=== PATIENT | female | born 1950 | race Hispanic/Latino ===

== ENCOUNTER 2019-07-11 21:11 | Observation (INO) | payer MEDICARE, OTHER ==
[~2019-07-11] VITALS: Ht 165.1 cm; Wt 74.4 kg
--- OUTSIDE RECORDS SUMMARY | 2019-07-11 21:15 | XMS REPORT ---
Author Author [facility] Address Unknown Phone Unavailable Care Team Providers Care Associate Data Scientist Name Role Phone NOEMI BERNSTEIN Unavailable Unavailable THEE SAMANO Unavailable Unavailable LINUS LYLES Unavailable Unavailable HANNAH DUENAS Unavailable Unavailable HOBSON, DONNIE Unavailable Unavailable Problems This patient has no known problems. Allergies, Adverse Reactions, Alerts This patient has no known allergies or adverse reactions. Medications This patient has no known medications. Results Test Description Test Time Test Comments Text Results Atomic Results Result Comments RAD, SPINE, LUMBAR, COMPLETE (MIN 4 VIEWS) 2019-02-09 17:31:00 Reason for exam:- >BACK PAINShould this be performed at the bedside?->No FINAL REPORT LUMBAR SPINE 4 VIEWS HISTORY: Low back pain COMPARISON: Sagittal reformatted images from a CT abdomen of 07/25/2018 FINDINGS: AP, lateral, and bilateral oblique views of the lumbar spine were obtained. No lumbar fracture is visualized. There is moderate disc space narrowing at L2-L3 associated with endplate osteophytes. There is mild/moderate disc space narrowing at L1-L2. No other disc space narrowing is evident. There is arthrosis of the L4-L5 and L5-S1 facet joints. No spondylolysis or spondylolisthesis are visualized. IMPRESSION: 1. No fracture or acute abnormalities are visualized in the lumbar spine. 2. Multilevel degenerative disease. Signed: Eloy Arnold MDReport Verified Date/Time: 02/09/2019 17:31:29 Reading Location: [facility] C0X Ortho Consult [facility] , ABDOMEN 2018-07-25 16:51:00 Oral Contrast FINAL REPORT ABDOMINAL AND PELVIS CT DATED 07/25/2018 CLINICAL INFORMATION: Abdominal pain, unspecifiedsuspected diverticulitis TECHNIQUE: Axial images of the abdomen and pelvis were obtained from diaphragm to the pubic symphysis without GI or intravenous contrast. This exam was performed according to our departmental dose-optimization program, which includes automated exposure control, adjustment of the mA and/or kV according to patient size and/or use of interactive reconstruction technique. COMMENT: Liver and spleen are normal in size without focal abnormality. Gallbladder is surgically absent. No biliary dilatation is noted. Pancreas and adrenals are unremarkable. Both kidneys are normal in size. No hydronephrosis, hydroureter, urolithiasis is seen. Diverticular disease is seen in the large bowel. There is inflammatory changes in the distal descending mesocolon consistent with diverticulitis. No pneumoperitoneum or peridiverticular abscess is present. The small bowel is normal in caliber. Appendix is not visualized. Uterus is surgically absent. Both ovaries are unremarkable. No mass, adenopathy or ascites is present. IMPRESSION: Distal descending diverticulitis. Signed: Noemi Colon Verified Date/Time: 07/25/2018 16:51:27 Reading Location: [address] Body Reading Room , BRAIN, WITHOUT CONTRAST 2018-01-20 17:09:00 Reason for exam:->dizzinessWhat is the patient's sedation requirement?->No Sedation FINAL REPORT CT head without contrast. Comparisons: April 19, 2017 Reason for exam: Dizzinessdizziness. Discussion: Multiple axial CT images of the head are provided without contrast evaluated in brain and bone windows. Imaging submitted to PACS 1705 hours. Dose modulation, iterative reconstruction, and/or weight based adjustment of the mA/kV was utilized to reduce the radiation dose to as low as reasonably achievable. There is no CT evidence of intracranial hemorrhage, mass-effect, hydrocephalus, shift, or extra-axial collections. The visualized dural sinus regions, orbital contents, paranasal sinuses, bones and surrounding soft tissues are unremarkable. Impressions: 1. No specific evidence of acute intracranial abnormality. Signed: Adolfo Ball Verified Date/Time: 01/20/2018 17:09:40 Reading Location: [facility] C013V Neuro Reading Room -GLUCOSE METER 2018-01-20 14:54:00 POC-GLUCOSE METER (BEAKER) (test hrtq=5227) 203 mg/dL 70-110 TESTED AT [facility]- [address] [facility] [address] BLOOD [id number] 10:00:00* Test Item Value Reference Range Comments CULTURE (BEAKER) (test uktm=5190) No growth in 5 days BLOOD [id number] 10:00:00* Test Item Value Reference Range Comments CULTURE (BEAKER) (test ribr=0770) No growth in 5 days BLOOD [id number] 10:00:00* Test Item Value Reference Range Comments CULTURE (BEAKER) (test ahfd=8302) No growth in 5 days POCT-GLUCOSE [id number] 08:47:00* Test Item Value Reference Range Comments POC-GLUCOSE METER (BEAKER) (test gine=9321) 92 mg/dL 70-[address] [facility] [address] [facility] [address] BASIC METABOLIC [id number] 05:56:00* Test Item Value Reference Range Comments SODIUM (BEAKER) (test mnst=426) 139 meq/L 136-145 POTASSIUM (BEAKER) (test vqan=900) 3.3 meq/L 3.5-5.1 CHLORIDE (BEAKER) (test tbgg=913) 107 meq/L 98-107 CO2 (BEAKER) (test ooyt=861) 24 meq/L 22-29 BLOOD UREA NITROGEN (BEAKER) (test fjjc=911) 15 mg/dL 7-21 CREATININE (BEAKER) (test zzap=521) 0.66 mg/dL 0.57-1.25 GLUCOSE RANDOM (BEAKER) (test ujag=647) 108 mg/dL 70-105 CALCIUM (BEAKER) (test hjrf=856) 8.3 mg/dL 8.4-10.2 EGFR (BEAKER) (test odxf=2036) 90 mL/min/1.73 sq m ESTIMATED GFR IS NOT ACCURATE CREATININE CLEARANCE IN PREDICTING GLOMERULAR FILTRATION RATE. ESTIMATED GFR IS NOT APPLICABLE FOR DIALYSIS PATIENTS. C-REACTIVE [id number] 05:56:00* Test Item Value Reference Range Comments C-REACTIVE PROTEIN (BEAKER) (test aktw=889) 0.20 mg/dL 0.00-0.50 CBC W/PLT COUNT & AUTO [id number] 05:11:00* Test Item Value Reference Range Comments WHITE BLOOD CELL COUNT (BEAKER) (test umls=487) 7.0 K/ L 3.5-10.5 RED BLOOD CELL COUNT (BEAKER) (test nhhs=288) 4.35 M/ L 3.93-5.22 HEMOGLOBIN (BEAKER) (test ffrd=935) 12.6 GM/DL 11.2-15.7 HEMATOCRIT (BEAKER) (test btmx=453) 37.9 % 34.1-44.9 MEAN CORPUSCULAR VOLUME (BEAKER) (test nbpt=586) 87.1 fL 79.4-94.8 MEAN CORPUSCULAR HEMOGLOBIN (BEAKER) (test zqxi=869) 29.0 pg 25.6-32.2 MEAN CORPUSCULAR HEMOGLOBIN CONC (BEAKER) (test vfwh=187) 33.2 GM/DL 32.2-35.5 RED CELL DISTRIBUTION WIDTH (BEAKER) (test ibjt=681) 13.1 % 11.7-14.4 PLATELET COUNT (BEAKER) (test mkgj=129) 310 K/CU MM 150-450 MEAN PLATELET VOLUME (BEAKER) (test kdzp=366) 10.1 fL 9.4-12.3 NUCLEATED RED BLOOD CELLS (BEAKER) (test qgex=088) 0 /100 WBC 0-0 IMMATURE GRANULOCYTES-RELATIVE PERCENT (BEAKER) (test syui=8494) 0 % 0-1 POCT-GLUCOSE [id number] 21:13:00* Test Item Value Reference Range Comments POC-GLUCOSE METER (BEAKER) (test prpo=0311) 208 mg/dL 70-110 TESTED AT [address] [address] POCT-GLUCOSE [id number] 17:45:00* Test Item Value Reference Range Comments POC-GLUCOSE METER (BEAKER) (test ncgf=8937) 109 mg/dL 70-110 TESTED AT [address] [address] POCT-GLUCOSE [id number] 12:15:00* Test Item Value Reference Range Comments POC-GLUCOSE METER (BEAKER) (test cghy=4127) 142 mg/dL 70-110 TESTED AT [address] [address] URINE [id number] 09:20:00* Test Item Value Reference Range Comments CULTURE (BEAKER) (test phie=7327) Amikacin (test code=1) Ampicillin + Sulbactam (test code=6) Aztreonam (test code=32) Cefepime (test code=51) Cefoxitin (test code=68) Ceftazidime (test code=27) Ceftriaxone (test code=52) Ertapenem (test code=38) Gentamicin (test code=18) Levofloxacin (test code=22) Meropenem (test code=34) Nitrofurantoin (test code=23) Piperacillin + Tazobactam (test code=29) Tetracycline (test code=2) Tobramycin (test code=25) Trimethoprim + Sulfamethoxazole (test code=47) CULTURE (BEAKER) (test pkpo=9326) 30-39,000 col/mL Escherichia coli POCT-GLUCOSE [id number] 08:08:00* Test Item Value Reference Range Comments POC-GLUCOSE METER (BEAKER) (test opwp=2457) 102 mg/dL 70-[address] [facility] [address] [facility] [address] CBC W/PLT COUNT & AUTO [id number] 06:46:00* Test Item Value Reference Range Comments WHITE BLOOD CELL COUNT (BEAKER) (test sfco=511) 5.1 K/ L 3.5-10.5 RED BLOOD CELL COUNT (BEAKER) (test vlmm=250) 4.23 M/ L 3.93-5.22 HEMOGLOBIN (BEAKER) (test ccgg=991) 12.2 GM/DL 11.2-15.7 HEMATOCRIT (BEAKER) (test slxv=177) 37.0 % 34.1-44.9 MEAN CORPUSCULAR VOLUME (BEAKER) (test ncpp=899) 87.5 fL 79.4-94.8 MEAN CORPUSCULAR HEMOGLOBIN (BEAKER) (test becx=623) 28.8 pg 25.6-32.2 MEAN CORPUSCULAR HEMOGLOBIN CONC (BEAKER) (test zoqs=799) 33.0 GM/DL 32.2-35.5 RED CELL DISTRIBUTION WIDTH (BEAKER) (test adfq=074) 13.1 % 11.7-14.4 PLATELET COUNT (BEAKER) (test nyaa=508) 287 K/CU MM 150-450 MEAN PLATELET VOLUME (BEAKER) (test wvci=346) 10.3 fL 9.4-12.3 NUCLEATED RED BLOOD CELLS (BEAKER) (test jyou=861) 0 /100 WBC 0-0 NEUTROPHILS RELATIVE PERCENT (BEAKER) (test mswq=315) 44 % LYMPHOCYTES RELATIVE PERCENT (BEAKER) (test lscw=454) 46 % MONOCYTES RELATIVE PERCENT (BEAKER) (test wczo=682) 9 % EOSINOPHILS RELATIVE PERCENT (BEAKER) (test zxxa=949) 0 % BASOPHILS RELATIVE PERCENT (BEAKER) (test dsbk=750) 0 % NEUTROPHILS ABSOLUTE COUNT (BEAKER) (test mayg=510) 2.23 K/ L 1.56-6.13 LYMPHOCYTES ABSOLUTE COUNT (BEAKER) (test cmks=526) 2.35 K/ L 1.18-3.74 MONOCYTES ABSOLUTE COUNT (BEAKER) (test qvxm=634) 0.48 K/ L 0.24-0.36 EOSINOPHILS ABSOLUTE COUNT (BEAKER) (test kjzc=164) 0.00 K/ L 0.04-0.36 BASOPHILS ABSOLUTE COUNT (BEAKER) (test uhlq=400) 0.01 K/ L 0.01-0.08 IMMATURE GRANULOCYTES-RELATIVE PERCENT (BEAKER) (test mtzd=4049) 0 % 0-1 BASIC METABOLIC [id number] 06:06:00* Test Item Value Reference Range Comments SODIUM (BEAKER) (test rtwu=220) 140 meq/L 136-145 POTASSIUM (BEAKER) (test vtne=549) 3.4 meq/L 3.5-5.1 CHLORIDE (BEAKER) (test quir=723) 109 meq/L 98-107 CO2 (BEAKER) (test glax=757) 24 meq/L 22-29 BLOOD UREA NITROGEN (BEAKER) (test swok=585) 17 mg/dL 7-21 CREATININE (BEAKER) (test dbnq=178) 0.68 mg/dL 0.57-1.25 GLUCOSE RANDOM (BEAKER) (test ratb=376) 110 mg/dL 70-105 CALCIUM (BEAKER) (test gaad=328) 8.6 mg/dL 8.4-10.2 EGFR (BEAKER) (test cbkh=9287) 87 mL/min/1.73 sq m ESTIMATED GFR IS NOT ACCURATE CREATININE CLEARANCE IN PREDICTING GLOMERULAR FILTRATION RATE. ESTIMATED GFR IS NOT APPLICABLE FOR DIALYSIS PATIENTS. CREATINE KINASE (CK)2017-04-22 06:06:00* Test Item Value Reference Range Comments CREATINE KINASE TOTAL (BEAKER) (test yvha=350) 26 U/L 29-200 C-REACTIVE [id number] 06:06:00* Test Item Value Reference Range Comments C-REACTIVE PROTEIN (BEAKER) (test hlog=583) 0.27 mg/dL 0.00-0.50 POCT-GLUCOSE [id number] 20:55:00* Test Item Value Reference Range Comments POC-GLUCOSE METER (BEAKER) (test kwpf=5995) 202 mg/dL 70-110 TESTED AT [address] [address] POCT-GLUCOSE [id number] 18:51:00* Test Item Value Reference Range Comments POC-GLUCOSE METER (BEAKER) (test oozf=9835) 238 mg/dL 70-110 TESTED AT [address] [address] POCT-GLUCOSE [id number] 13:27:00* Test Item Value Reference Range Comments POC-GLUCOSE METER (BEAKER) (test ymqx=3860) 215 mg/dL 70-110 TESTED AT [address] [address] SEDIMENTATION [id number] 11:17:00* Test Item Value Reference Range Comments SEDIMENTATION RATE, ERYTHROCYTE (BEAKER) (test tobk=765) 31 mm/HR 0-40 URINE [id number] 10:16:00* Test Item Value Reference Range Comments CULTURE (BEAKER) (test mppa=2135) See comment <10,000 col/mL Gram Negative RodPOCT-GLUCOSE [id number] 08:30:00* Test Item Value Reference Range Comments POC-GLUCOSE METER (BEAKER) (test txtv=0085) 111 mg/dL 70-110 TESTED AT [address] [address] CBC W/PLT COUNT & AUTO [id number] 07:13:00* Test Item Value Reference Range Comments WHITE BLOOD CELL COUNT (BEAKER) (test jfsf=065) 4.0 K/ L 3.5-10.5 RED BLOOD CELL COUNT (BEAKER) (test ppxz=238) 4.22 M/ L 3.93-5.22 HEMOGLOBIN (BEAKER) (test gyjj=059) 12.2 GM/DL 11.2-15.7 HEMATOCRIT (BEAKER) (test zkht=947) 36.9 % 34.1-44.9 MEAN CORPUSCULAR VOLUME (BEAKER) (test lhkr=202) 87.4 fL 79.4-94.8 MEAN CORPUSCULAR HEMOGLOBIN (BEAKER) (test jwnn=012) 28.9 pg 25.6-32.2 MEAN CORPUSCULAR HEMOGLOBIN CONC (BEAKER) (test sviy=461) 33.1 GM/DL 32.2-35.5 RED CELL DISTRIBUTION WIDTH (BEAKER) (test jvic=143) 13.1 % 11.7-14.4 PLATELET COUNT (BEAKER) (test sfwi=148) 293 K/CU MM 150-450 MEAN PLATELET VOLUME (BEAKER) (test ovtx=458) 10.3 fL 9.4-12.3 NUCLEATED RED BLOOD CELLS (BEAKER) (test qlnk=654) 0 /100 WBC 0-0 NEUTROPHILS RELATIVE PERCENT (BEAKER) (test cnct=092) 44 % LYMPHOCYTES RELATIVE PERCENT (BEAKER) (test yral=223) 43 % MONOCYTES RELATIVE PERCENT (BEAKER) (test hywe=609) 12 % EOSINOPHILS RELATIVE PERCENT (BEAKER) (test rkcw=053) 0 % BASOPHILS RELATIVE PERCENT (BEAKER) (test vfpz=702) 1 % NEUTROPHILS ABSOLUTE COUNT (BEAKER) (test qcek=405) 1.73 K/ L 1.56-6.13 LYMPHOCYTES ABSOLUTE COUNT (BEAKER) (test gozu=069) 1.69 K/ L 1.18-3.74 MONOCYTES ABSOLUTE COUNT (BEAKER) (test vmhn=766) 0.48 K/ L 0.24-0.36 EOSINOPHILS ABSOLUTE COUNT (BEAKER) (test feal=005) 0.01 K/ L 0.04-0.36 BASOPHILS ABSOLUTE COUNT (BEAKER) (test vyqn=282) 0.02 K/ L 0.01-0.08 IMMATURE GRANULOCYTES-RELATIVE PERCENT (BEAKER) (test ckix=2162) 1 % 0-1 (MANUAL DIFFERENTIAL)2017-04-21 07:13:00* Test Item Value Reference Range Comments TOTAL COUNTED (BEAKER) (test usob=3177) BASIC METABOLIC [id number] 06:38:00* Test Item Value Reference Range Comments SODIUM (BEAKER) (test vcaa=098) 138 meq/L 136-145 POTASSIUM (BEAKER) (test ynhr=731) 3.4 meq/L 3.5-5.1 CHLORIDE (BEAKER) (test xzhj=333) 106 meq/L 98-107 CO2 (BEAKER) (test vsot=632) 22 meq/L 22-29 BLOOD UREA NITROGEN (BEAKER) (test jpgy=096) 11 mg/dL 7-21 CREATININE (BEAKER) (test yijk=475) 0.64 mg/dL 0.57-1.25 GLUCOSE RANDOM (BEAKER) (test sncb=941) 93 mg/dL 70-105 CALCIUM (BEAKER) (test vjwp=428) 8.4 mg/dL 8.4-10.2 EGFR (BEAKER) (test vfjk=6078) 93 mL/min/1.73 sq m ESTIMATED GFR IS NOT ACCURATE CREATININE CLEARANCE IN PREDICTING GLOMERULAR FILTRATION RATE. ESTIMATED GFR IS NOT APPLICABLE FOR DIALYSIS PATIENTS. C-REACTIVE [id number] 06:38:00* Test Item Value Reference Range Comments C-REACTIVE PROTEIN (BEAKER) (test nuuf=164) 0.37 mg/dL 0.00-0.50 POCT-GLUCOSE [id number] 20:45:00* Test Item Value Reference Range Comments POC-GLUCOSE METER (BEAKER) (test zqec=8639) 121 mg/dL 70-[address] [facility] [address] [facility] [address] HEMOGLOBIN [id number] 09:34:00* Test Item Value Reference Range Comments HEMOGLOBIN A1C (BEAKER) (test xcvn=443) 6.5 % 4.3-6.1 URINALYSIS W/ [id number] 07:46:00* Test Item Value Reference Range Comments COLOR (BEAKER) (test psys=949) Yellow CLARITY (BEAKER) (test ilux=353) Clear SPECIFIC GRAVITY UA (BEAKER) (test iahk=912) 1.021 1.001-1.035 PH UA (BEAKER) (test sqbf=323) 5.5 5.0-8.0 PROTEIN UA (BEAKER) (test azaf=964) 20 mg/dL Negative GLUCOSE UA (BEAKER) (test gsfj=013) 30 mg/dL Negative KETONES UA (BEAKER) (test trwk=232) 20 mg/dL Negative BILIRUBIN UA (BEAKER) (test wnfy=063) Negative Negative BLOOD UA (BEAKER) (test mglq=704) Negative Negative NITRITE UA (BEAKER) (test eacr=971) Negative Negative LEUKOCYTE ESTERASE UA (BEAKER) (test mtok=090) Negative Negative UROBILINOGEN UA (BEAKER) (test uzsi=556) 0.2 mg/dL 0.2-1.0 RBC UA (BEAKER) (test edid=329) 3 /HPF WBC UA (BEAKER) (test tztj=283) 2 /HPF MUCUS (BEAKER) (test ewud=0187) Moderate HYALINE CASTS (BEAKER) (test xftv=168) 4 /LPF SOURCE(BEAKER) (test dixw=5398) [id number] 07:36:00* Test Item Value Reference Range Comments PHOSPHORUS (BEAKER) (test lukz=723) 3.3 mg/dL 2.3-4.7 [id number] 07:36:00* Test Item Value Reference Range Comments MAGNESIUM (BEAKER) (test zcvh=721) 1.9 mg/dL 1.6-2.6 LIPID [id number] 07:36:00* Test Item Value Reference Range Comments TRIGLYCERIDES (BEAKER) (test jfng=783) 120 mg/dL CHOLESTEROL (BEAKER) (test majp=571) 182 mg/dL HDL CHOLESTEROL (BEAKER) (test swba=927) 42 mg/dL LDL CHOLESTEROL CALCULATED (BEAKER) (test wtwv=233) 116 mg/dL Triglyceride Reference Range: Low Risk <150 Borderline 150-199 High Risk 200-499 Very High Risk >=500Cholesterol Reference Range: Low Risk <200 Borderline 200-239 High Risk >240HDL Cholesterol Reference Range: Low Risk >=60 High Risk <40LDL Cholesterol Reference Range: Optimal <100 Near Optimal 100-129 Borderline 130-159 High 160-189 Very High >=190 HEPATIC FUNCTION [id number] 07:36:00* Test Item Value Reference Range Comments TOTAL PROTEIN (BEAKER) (test hqfa=914) 6.8 gm/dL 6.0-8.3 ALBUMIN (BEAKER) (test vveb=1413) 3.8 g/dL 3.5-5.0 BILIRUBIN TOTAL (BEAKER) (test zmic=662) < mg/dL 0.2-1.2 BILIRUBIN DIRECT (BEAKER) (test nnvg=889) 0.1 mg/dL 0.1-0.5 ALKALINE PHOSPHATASE (BEAKER) (test vguv=733) 90 U/L 40-150 AST (SGOT) (BEAKER) (test rzey=644) 26 U/L 5-34 ALT (SGPT) (BEAKER) (test effq=422) 43 U/L 6-55 [id number] 07:14:00* Test Item Value Reference Range Comments PROTIME (BEAKER) (test ogst=690) 13.5 seconds 11.7-14.7 INR (BEAKER) (test jfqq=497) 1.0 <=5.9 PARTIAL THROMBOPLASTIN TIME (BEAKER) (test vqvh=037) 35.1 seconds 22.5-36.0 RECOMMENDED COUMADIN/WARFARIN INR THERAPY RANGESSTANDARD DOSE: 2.0 - 3.0 Inclu lucien: PROPHYLAXIS for venous thrombosis, systemic embolization; TREATMENT for dougie ous thrombosis and/or pulmonary embolus.HIGH RISK: Target INR is 2.5-3.5 for pat ients with mechanical heart valves.CBC W/PLT COUNT & AUTO [id number] 06:57:00* Test Item Value Reference Range Comments WHITE BLOOD CELL COUNT (BEAKER) (test woqe=721) 5.4 K/ L 3.5-10.5 RED BLOOD CELL COUNT (BEAKER) (test ykma=123) 4.21 M/ L 3.93-5.22 HEMOGLOBIN (BEAKER) (test ijwi=526) 12.3 GM/DL 11.2-15.7 HEMATOCRIT (BEAKER) (test vvgo=419) 37.1 % 34.1-44.9 MEAN CORPUSCULAR VOLUME (BEAKER) (test mpgz=787) 88.1 fL 79.4-94.8 MEAN CORPUSCULAR HEMOGLOBIN (BEAKER) (test ykoe=477) 29.2 pg 25.6-32.2 MEAN CORPUSCULAR HEMOGLOBIN CONC (BEAKER) (test clzq=756) 33.2 GM/DL 32.2-35.5 RED CELL DISTRIBUTION WIDTH (BEAKER) (test citw=217) 13.2 % 11.7-14.4 PLATELET COUNT (BEAKER) (test ullc=360) 295 K/CU MM 150-450 MEAN PLATELET VOLUME (BEAKER) (test iydp=038) 10.6 fL 9.4-12.3 NUCLEATED RED BLOOD CELLS (BEAKER) (test bpok=953) 0 /100 WBC 0-0 NEUTROPHILS RELATIVE PERCENT (BEAKER) (test ozfk=293) 70 % LYMPHOCYTES RELATIVE PERCENT (BEAKER) (test gyrs=283) 20 % MONOCYTES RELATIVE PERCENT (BEAKER) (test vnda=834) 10 % EOSINOPHILS RELATIVE PERCENT (BEAKER) (test toau=610) 0 % BASOPHILS RELATIVE PERCENT (BEAKER) (test dgon=954) 0 % NEUTROPHILS ABSOLUTE COUNT (BEAKER) (test fxnz=556) 3.74 K/ L 1.56-6.13 LYMPHOCYTES ABSOLUTE COUNT (BEAKER) (test ouzw=502) 1.05 K/ L 1.18-3.74 MONOCYTES ABSOLUTE COUNT (BEAKER) (test nrtz=002) 0.53 K/ L 0.24-0.36 EOSINOPHILS ABSOLUTE COUNT (BEAKER) (test wlmg=416) 0.00 K/ L 0.04-0.36 BASOPHILS ABSOLUTE COUNT (BEAKER) (test drfn=535) 0.02 K/ L 0.01-0.08 IMMATURE GRANULOCYTES-RELATIVE PERCENT (BEAKER) (test pkoe=2483) 1 % 0-1 CT, BRAIN, WITHOUT [id number] 18:51:00FINAL REPORT CT Head without contrast CLINICAL HISTORY: Headache, acute, severe, thunderclap, worst ESCALANTE of life TECHNIQUE: Contiguous axial images through the head without contrast. This exam was performed according to the departmental dose optimization program which includes automated exposure control, adjustment of the mA and/or kV according to the patient size, and/or use of an iterative reconstruction technique. COMPARISON: 10/26/2016 FINDINGS: There is no CT evidence of acute infarct or intracranial hemorrhage. There are atherosclerotic calcifications of the intracranial circulation. There is no hydrocephalus, midline shift, or apparent mass effect. There are no extra-axial fluid colle ctions. The skull is intact. There is a right maxillary sinus mucus retention cy st or polyp. IMPRESSION: No CT evidence of acute infarct, hemorrhage, or hydroce phalus. Signed: Lakhwinder Oneal MDReport Verified Date/Time: 04/19/2017 18:51:06 Reading Location: [facility] Radiology Reading Room Electronically abdoul d by: LAKHWINDER ONEAL M.D. on 04/19/2017 06:51 PM POCT-GLUCOSE [id number] 13:39:00* Test Item Value Reference Range Comments POC-GLUCOSE METER (BEAKER) (test ielc=2854) 244 mg/dL 70-110 TESTED AT [facility] [address] [facility] [address] BASIC METABOLIC [id number] 12:22:00* Test Item Value Reference Range Comments SODIUM (BEAKER) (test logh=685) 139 meq/L 135-148 POTASSIUM (BEAKER) (test jili=751) 4.2 meq/L 3.6-5.5 CHLORIDE (BEAKER) (test ezym=887) 104 meq/L 98-106 CO2 (BEAKER) (test mxfa=682) 23 meq/L 24-32 BLOOD UREA NITROGEN (BEAKER) (test kqse=835) 17 mg/dL 10-26 CREATININE (BEAKER) (test vkqe=550) 0.70 mg/dL 0.50-1.20 GLUCOSE RANDOM (BEAKER) (test sucx=596) 297 mg/dL 70-110 CALCIUM (BEAKER) (test kbqu=539) 9.6 mg/dL 8.5-10.5 EGFR (BEAKER) (test owns=2578) 84 mL/min/1.73 sq m ESTIMATED GFR IS NOT ACCURATE CREATININE CLEARANCE IN PREDICTING GLOMERULAR FILTRATION RATE. ESTIMATED GFR IS NOT APPLICABLE FOR DIALYSIS PATIENTS. Specimen is slightly hemolyzed.CBC (HEMOGRAM ONLY)2016-07-24 12:21:00* Test Item Value Reference Range Comments WHITE BLOOD CELL COUNT (BEAKER) (test gltc=501) 7.4 K/ L 4.0-10.0 RED BLOOD CELL COUNT (BEAKER) (test rumf=021) 4.39 M/ L 4.00-5.00 HEMOGLOBIN (BEAKER) (test vgzo=387) 13.5 GM/DL 12.0-15.0 HEMATOCRIT (BEAKER) (test hauy=110) 37.9 % 36.0-45.0 MEAN CORPUSCULAR VOLUME (BEAKER) (test vsxx=078) 86.3 fL 82.0-99.0 MEAN CORPUSCULAR HEMOGLOBIN (BEAKER) (test gkmd=424) 30.8 pg 27.0-33.0 MEAN CORPUSCULAR HEMOGLOBIN CONC (BEAKER) (test bxbq=030) 35.6 GM/DL 32.0-36.0 RED CELL DISTRIBUTION WIDTH (BEAKER) (test irgs=074) % 10.3-14.2 Test not performed. PLATELET COUNT (BEAKER) (test ozqy=949) 395 K/CU MM 150-430 [id number] 17:39:00* Test Item Value Reference Range Comments SODIUM (BEAKER) (test lztt=414) 136 meq/L 135-148 BASIC METABOLIC [id number] 16:20:00* Test Item Value Reference Range Comments SODIUM (BEAKER) (test yvwt=040) meq/L 135-148 No Result POTASSIUM (BEAKER) (test zmdt=558) 3.3 meq/L 3.6-5.5 CHLORIDE (BEAKER) (test cmwz=072) 96 meq/L 98-106 CO2 (BEAKER) (test jtcm=400) 28 meq/L 24-32 BLOOD UREA NITROGEN (BEAKER) (test htjg=719) 17 mg/dL 10-26 CREATININE (BEAKER) (test netu=006) 0.60 mg/dL 0.50-1.20 GLUCOSE RANDOM (BEAKER) (test xkkl=811) 214 mg/dL 70-110 CALCIUM (BEAKER) (test xmyu=135) 9.5 mg/dL 8.5-10.5 EGFR (BEAKER) (test ggau=2149) 101 mL/min/1.73 sq m ESTIMATED GFR IS NOT ACCURATE CREATININE CLEARANCE IN PREDICTING GLOMERULAR FILTRATION RATE. ESTIMATED GFR IS NOT APPLICABLE FOR DIALYSIS PATIENTS. CBC (HEMOGRAM ONLY)2016-06-28 16:18:00* Test Item Value Reference Range Comments WHITE BLOOD CELL COUNT (BEAKER) (test geae=028) 10.4 K/ L 4.0-10.0 RED BLOOD CELL COUNT (BEAKER) (test clfl=517) 4.31 M/ L 4.00-5.00 HEMOGLOBIN (BEAKER) (test hwoa=471) 13.4 GM/DL 12.0-15.0 HEMATOCRIT (BEAKER) (test sdnb=339) 37.3 % 36.0-45.0 MEAN CORPUSCULAR VOLUME (BEAKER) (test aazr=475) 86.5 fL 82.0-99.0 MEAN CORPUSCULAR HEMOGLOBIN (BEAKER) (test tzxm=593) 31.1 pg 27.0-33.0 MEAN CORPUSCULAR HEMOGLOBIN CONC (BEAKER) (test wkhl=969) 35.9 GM/DL 32.0-36.0 RED CELL DISTRIBUTION WIDTH (BEAKER) (test ctpq=871) % 10.3-14.2 Test not performed PLATELET COUNT (BEAKER) (test lzns=754) 480 K/CU MM 150-430 CBC W/PLT COUNT & AUTO [id number] 12:40:00* Test Item Value Reference Range Comments WHITE BLOOD CELL COUNT (BEAKER) (test roka=512) 20.6 K/ L 4.0-10.0 RED BLOOD CELL COUNT (BEAKER) (test uyxo=385) 4.22 M/ L 4.00-5.00 HEMOGLOBIN (BEAKER) (test xsvp=202) 13.3 GM/DL 12.0-15.0 HEMATOCRIT (BEAKER) (test jwnu=467) 39.4 % 36.0-45.0 MEAN CORPUSCULAR VOLUME (BEAKER) (test rrqv=305) 93.4 fL 82.0-99.0 MEAN CORPUSCULAR HEMOGLOBIN (BEAKER) (test zqaw=918) 31.6 pg 27.0-33.0 MEAN CORPUSCULAR HEMOGLOBIN CONC (BEAKER) (test upwf=916) 33.9 GM/DL 32.0-36.0 RED CELL DISTRIBUTION WIDTH (BEAKER) (test gbok=159) 12.5 % 10.3-14.2 PLATELET COUNT (BEAKER) (test folz=936) 255 K/CU MM 150-430 MEAN PLATELET VOLUME (BEAKER) (test uuqg=069) 8.7 fL 6.5-10.5 NUCLEATED RED BLOOD CELLS (BEAKER) (test bzvv=428) 0 /100 WBC 0-0 NEUTROPHILS RELATIVE PERCENT (BEAKER) (test wqbx=302) 88 % LYMPHOCYTES RELATIVE PERCENT (BEAKER) (test gtmv=409) 8 % MONOCYTES RELATIVE PERCENT (BEAKER) (test oddj=284) 5 % EOSINOPHILS RELATIVE PERCENT (BEAKER) (test ubsz=103) 0 % BASOPHILS RELATIVE PERCENT (BEAKER) (test zhbf=907) 0 % NEUTROPHILS ABSOLUTE COUNT (BEAKER) (test uzna=226) 18.00 K/ L 1.80-8.00 LYMPHOCYTES ABSOLUTE COUNT (BEAKER) (test ajmo=357) 1.57 K/ L 1.48-4.50 MONOCYTES ABSOLUTE COUNT (BEAKER) (test rzpn=851) 0.95 K/ L 0.00-1.30 EOSINOPHILS ABSOLUTE COUNT (BEAKER) (test kldw=624) 0.06 K/ L 0.00-0.50 BASOPHILS ABSOLUTE COUNT (BEAKER) (test qzjd=361) 0.00 K/ L 0.00-0.20 [id number](MANUAL DIFFERENTIAL)2016-06-23 12:40:00* Test Item Value Reference Range Comments TOTAL COUNTED (BEAKER) (test gqft=0301) POCT-GLUCOSE [id number] 07:37:00* Test Item Value Reference Range Comments POC-GLUCOSE METER (BEAKER) (test mvdb=9768) 109 mg/dL 70-[address] [facility] [address] [facility] [address] [id number] 06:30:00* Test Item Value Reference Range Comments PHOSPHORUS (BEAKER) (test rdet=509) 2.5 mg/dL 2.3-4.7 [id number] 06:30:00* Test Item Value Reference Range Comments MAGNESIUM (BEAKER) (test jvdq=251) 2.0 mg/dL 1.6-2.6 BASIC METABOLIC [id number] 06:30:00* Test Item Value Reference Range Comments SODIUM (BEAKER) (test vaze=688) 135 meq/L 136-145 POTASSIUM (BEAKER) (test qddz=958) 3.5 meq/L 3.5-5.1 CHLORIDE (BEAKER) (test iykz=599) 103 meq/L 98-107 CO2 (BEAKER) (test mpfn=199) 22 meq/L 22-29 BLOOD UREA NITROGEN (BEAKER) (test cxok=256) 27 mg/dL 7-21 CREATININE (BEAKER) (test zwxb=808) 0.78 mg/dL 0.57-1.25 GLUCOSE RANDOM (BEAKER) (test ophl=298) 108 mg/dL 70-105 CALCIUM (BEAKER) (test yknb=226) 8.7 mg/dL 8.4-10.2 EGFR (BEAKER) (test oayc=2736) 74 mL/min/1.73 sq m ESTIMATED GFR IS NOT ACCURATE CREATININE CLEARANCE IN PREDICTING GLOMERULAR FILTRATION RATE. ESTIMATED GFR IS NOT APPLICABLE FOR DIALYSIS PATIENTS. POCT-GLUCOSE [id number] 03:51:00* Test Item Value Reference Range Comments POC-GLUCOSE METER (BEAKER) (test durp=0103) 106 mg/dL 70-110 TESTED AT [address] [address] POCT-GLUCOSE [id number] 17:23:00* Test Item Value Reference Range Comments POC-GLUCOSE METER (BEAKER) (test xdzc=0415) 136 mg/dL 70-110 TESTED AT [address] [address] POCT-GLUCOSE [id number] 12:18:00* Test Item Value Reference Range Comments POC-GLUCOSE METER (BEAKER) (test oupv=1093) 135 mg/dL 70-110 TESTED AT [address] [address] POCT-GLUCOSE [id number] 08:41:00* Test Item Value Reference Range Comments POC-GLUCOSE METER (BEAKER) (test bahh=4324) 135 mg/dL 70-110 TESTED AT [address] [address] CBC W/PLT COUNT & AUTO [id number] 05:50:00* Test Item Value Reference Range Comments WHITE BLOOD CELL COUNT (BEAKER) (test lnyh=611) 18.2 K/ L 4.0-10.0 RED BLOOD CELL COUNT (BEAKER) (test cnva=361) 4.49 M/ L 4.00-5.00 HEMOGLOBIN (BEAKER) (test kwfi=465) 14.4 GM/DL 12.0-15.0 HEMATOCRIT (BEAKER) (test thwp=946) 41.4 % 36.0-45.0 MEAN CORPUSCULAR VOLUME (BEAKER) (test acbr=792) 92.2 fL 82.0-99.0 MEAN CORPUSCULAR HEMOGLOBIN (BEAKER) (test ezkf=383) 32.0 pg 27.0-33.0 MEAN CORPUSCULAR HEMOGLOBIN CONC (BEAKER) (test mxwv=981) 34.7 GM/DL 32.0-36.0 RED CELL DISTRIBUTION WIDTH (BEAKER) (test gqbo=840) 12.3 % 10.3-14.2 PLATELET COUNT (BEAKER) (test nrlf=929) 292 K/CU MM 150-430 MEAN PLATELET VOLUME (BEAKER) (test pykk=444) 7.7 fL 6.5-10.5 NUCLEATED RED BLOOD CELLS (BEAKER) (test fvbr=250) 0 /100 WBC 0-0 NEUTROPHILS RELATIVE PERCENT (BEAKER) (test qidd=458) 87 % LYMPHOCYTES RELATIVE PERCENT (BEAKER) (test rhgc=544) 8 % MONOCYTES RELATIVE PERCENT (BEAKER) (test lgnj=488) 5 % EOSINOPHILS RELATIVE PERCENT (BEAKER) (test wrya=382) 0 % BASOPHILS RELATIVE PERCENT (BEAKER) (test qrbb=286) 0 % NEUTROPHILS ABSOLUTE COUNT (BEAKER) (test psho=753) 15.80 K/ L 1.80-8.00 LYMPHOCYTES ABSOLUTE COUNT (BEAKER) (test qwen=895) 1.44 K/ L 1.48-4.50 MONOCYTES ABSOLUTE COUNT (BEAKER) (test cyxn=668) 0.89 K/ L 0.00-1.30 EOSINOPHILS ABSOLUTE COUNT (BEAKER) (test dinv=329) 0.04 K/ L 0.00-0.50 BASOPHILS ABSOLUTE COUNT (BEAKER) (test jgkj=673) 0.05 K/ L 0.00-0.20 [id number] 05:28:00* Test Item Value Reference Range Comments PHOSPHORUS (BEAKER) (test xnhy=432) 3.9 mg/dL 2.3-4.7 [id number] 05:28:00* Test Item Value Reference Range Comments MAGNESIUM (BEAKER) (test ball=406) 1.9 mg/dL 1.6-2.6 BASIC METABOLIC [id number] 05:28:00* Test Item Value Reference Range Comments SODIUM (BEAKER) (test ndcz=460) 136 meq/L 136-145 POTASSIUM (BEAKER) (test afrz=200) 3.6 meq/L 3.5-5.1 CHLORIDE (BEAKER) (test rkwm=427) 103 meq/L 98-107 CO2 (BEAKER) (test lpjs=318) 23 meq/L 22-29 BLOOD UREA NITROGEN (BEAKER) (test vjvg=477) 17 mg/dL 7-21 CREATININE (BEAKER) (test jqww=966) 0.78 mg/dL 0.57-1.25 GLUCOSE RANDOM (BEAKER) (test yfif=507) 152 mg/dL 70-105 CALCIUM (BEAKER) (test fllt=938) 8.9 mg/dL 8.4-10.2 EGFR (BEAKER) (test qgoz=8000) 74 mL/min/1.73 sq m ESTIMATED GFR IS NOT ACCURATE CREATININE CLEARANCE IN PREDICTING GLOMERULAR FILTRATION RATE. ESTIMATED GFR IS NOT APPLICABLE FOR DIALYSIS PATIENTS. POCT-GLUCOSE [id number] 22:15:00* Test Item Value Reference Range Comments POC-GLUCOSE METER (BEAKER) (test adhd=0292) 202 mg/dL 70-110 TESTED AT [place] [id number] POCT-GLUCOSE [id number] 17:52:00* Test Item Value Reference Range Comments POC-GLUCOSE METER (BEAKER) (test cbza=8410) 206 mg/dL 70-110 TESTED AT [place] [id number] POCT-GLUCOSE [id number] 10:35:00* Test Item Value Reference Range Comments POC-GLUCOSE METER (BEAKER) (test thoa=4002) 141 mg/dL 70-110 TESTED AT [place] [id number] POCT-GLUCOSE [id number] 07:45:00* Test Item Value Reference Range Comments POC-GLUCOSE METER (BEAKER) (test lqkc=1459) 87 mg/dL 70-110 TESTED AT [place] [address] [id number] 04:47:00* Test Item Value Reference Range Comments PHOSPHORUS (BEAKER) (test ueet=691) 3.4 mg/dL 2.3-4.7 [id number] 04:47:00* Test Item Value Reference Range Comments MAGNESIUM (BEAKER) (test qtae=647) 1.9 mg/dL 1.6-2.6 COMPREHENSIVE METABOLIC [id number] 04:47:00* Test Item Value Reference Range Comments TOTAL PROTEIN (BEAKER) (test hqru=087) 6.3 gm/dL 6.0-8.3 ALBUMIN (BEAKER) (test rryc=6102) 3.7 g/dL 3.5-5.0 ALKALINE PHOSPHATASE (BEAKER) (test vgro=780) 61 U/L 40-150 BILIRUBIN TOTAL (BEAKER) (test fiol=396) 0.4 mg/dL 0.2-1.2 SODIUM (BEAKER) (test qiiy=456) 139 meq/L 136-145 POTASSIUM (BEAKER) (test jhyq=962) 3.5 meq/L 3.5-5.1 CHLORIDE (BEAKER) (test nghb=103) 108 meq/L 98-107 CO2 (BEAKER) (test hqvo=398) 24 meq/L 22-29 BLOOD UREA NITROGEN (BEAKER) (test bqhm=690) 10 mg/dL 7-21 CREATININE (BEAKER) (test lbqs=420) 0.62 mg/dL 0.57-1.25 GLUCOSE RANDOM (BEAKER) (test dmpb=163) 95 mg/dL 70-105 CALCIUM (BEAKER) (test kyyj=495) 8.6 mg/dL 8.4-10.2 AST (SGOT) (BEAKER) (test szhe=499) 10 U/L 5-34 ALT (SGPT) (BEAKER) (test zebd=568) 10 U/L 6-55 EGFR (BEAKER) (test wyry=7215) 97 mL/min/1.73 sq m ESTIMATED GFR IS NOT ACCURATE CREATININE CLEARANCE IN PREDICTING GLOMERULAR FILTRATION RATE. ESTIMATED GFR IS NOT APPLICABLE FOR DIALYSIS PATIENTS. CBC W/PLT COUNT & AUTO [id number] 04:32:00* Test Item Value Reference Range Comments WHITE BLOOD CELL COUNT (BEAKER) (test uakh=419) 7.8 K/ L 4.0-10.0 RED BLOOD CELL COUNT (BEAKER) (test uaup=719) 4.09 M/ L 4.00-5.00 HEMOGLOBIN (BEAKER) (test htfx=341) 12.3 GM/DL 12.0-15.0 HEMATOCRIT (BEAKER) (test kxqf=061) 37.5 % 36.0-45.0 MEAN CORPUSCULAR VOLUME (BEAKER) (test eqhz=446) 91.8 fL 82.0-99.0 MEAN CORPUSCULAR HEMOGLOBIN (BEAKER) (test bhun=421) 30.2 pg 27.0-33.0 MEAN CORPUSCULAR HEMOGLOBIN CONC (BEAKER) (test hcgj=967) 32.9 GM/DL 32.0-36.0 RED CELL DISTRIBUTION WIDTH (BEAKER) (test ltds=161) 12.2 % 10.3-14.2 PLATELET COUNT (BEAKER) (test mmga=514) 264 K/CU MM 150-430 MEAN PLATELET VOLUME (BEAKER) (test wlau=798) 7.7 fL 6.5-10.5 NUCLEATED RED BLOOD CELLS (BEAKER) (test syjt=620) 0 /100 WBC 0-0 NEUTROPHILS RELATIVE PERCENT (BEAKER) (test tmxo=438) 57 % LYMPHOCYTES RELATIVE PERCENT (BEAKER) (test zweq=552) 34 % MONOCYTES RELATIVE PERCENT (BEAKER) (test mpzu=408) 6 % EOSINOPHILS RELATIVE PERCENT (BEAKER) (test zyjp=436) 3 % BASOPHILS RELATIVE PERCENT (BEAKER) (test elxm=440) 0 % NEUTROPHILS ABSOLUTE COUNT (BEAKER) (test yyhk=932) 4.47 K/ L 1.80-8.00 LYMPHOCYTES ABSOLUTE COUNT (BEAKER) (test wibz=268) 2.67 K/ L 1.48-4.50 MONOCYTES ABSOLUTE COUNT (BEAKER) (test vxbb=079) 0.46 K/ L 0.00-1.30 EOSINOPHILS ABSOLUTE COUNT (BEAKER) (test saug=640) 0.21 K/ L 0.00-0.50 BASOPHILS ABSOLUTE COUNT (BEAKER) (test vube=386) 0.02 K/ L 0.00-0.20 0.00POCT-GLUCOSE [id number] 22:24:00* Test Item Value Reference Range Comments POC-GLUCOSE METER (BEAKER) (test rwvh=0301) 92 mg/dL 70-110 [address]ED AT [address] [address] POCT-GLUCOSE [id number] 17:40:00* Test Item Value Reference Range Comments POC-GLUCOSE METER (BEAKER) (test reos=0291) 188 mg/dL 70-110 TESTED AT [address] [place] [address] POCT-GLUCOSE [id number] 08:46:00* Test Item Value Reference Range Comments POC-GLUCOSE METER (BEAKER) (test xcvx=8643) 96 mg/dL 70-[address] [facility] [address] [facility] [address] [id number] 06:16:00* Test Item Value Reference Range Comments LIPASE (BEAKER) (test dcgx=015) 33 U/L 8-78 COMPREHENSIVE METABOLIC [id number] 06:16:00* Test Item Value Reference Range Comments TOTAL PROTEIN (BEAKER) (test umsa=888) 6.3 gm/dL 6.0-8.3 ALBUMIN (BEAKER) (test toyp=4624) 3.7 g/dL 3.5-5.0 ALKALINE PHOSPHATASE (BEAKER) (test hxeq=547) 63 U/L 40-150 BILIRUBIN TOTAL (BEAKER) (test rxog=703) 0.3 mg/dL 0.2-1.2 SODIUM (BEAKER) (test pokz=104) 139 meq/L 136-145 POTASSIUM (BEAKER) (test qdlu=915) 3.9 meq/L 3.5-5.1 CHLORIDE (BEAKER) (test iiok=467) 109 meq/L 98-107 CO2 (BEAKER) (test lvds=612) 22 meq/L 22-29 BLOOD UREA NITROGEN (BEAKER) (test wteg=040) 18 mg/dL 7-21 CREATININE (BEAKER) (test zpvb=055) 0.69 mg/dL 0.57-1.25 GLUCOSE RANDOM (BEAKER) (test cvxn=741) 126 mg/dL 70-105 CALCIUM (BEAKER) (test xgaf=646) 8.7 mg/dL 8.4-10.2 AST (SGOT) (BEAKER) (test rjpq=269) 13 U/L 5-34 ALT (SGPT) (BEAKER) (test rjpb=401) 11 U/L 6-55 EGFR (BEAKER) (test eaho=6656) 86 mL/min/1.73 sq m ESTIMATED GFR IS NOT ACCURATE CREATININE CLEARANCE IN PREDICTING GLOMERULAR FILTRATION RATE. ESTIMATED GFR IS NOT APPLICABLE FOR DIALYSIS PATIENTS. CBC (HEMOGRAM ONLY)2016-06-20 05:56:00* Test Item Value Reference Range Comments WHITE BLOOD CELL COUNT (BEAKER) (test jdkl=776) 7.1 K/ L 4.0-10.0 RED BLOOD CELL COUNT (BEAKER) (test kbbb=988) 3.97 M/ L 4.00-5.00 HEMOGLOBIN (BEAKER) (test cdlg=107) 12.4 GM/DL 12.0-15.0 HEMATOCRIT (BEAKER) (test herm=501) 35.7 % 36.0-45.0 MEAN CORPUSCULAR VOLUME (BEAKER) (test nqif=193) 90.0 fL 82.0-99.0 MEAN CORPUSCULAR HEMOGLOBIN (BEAKER) (test mebw=359) 31.1 pg 27.0-33.0 MEAN CORPUSCULAR HEMOGLOBIN CONC (BEAKER) (test mgbq=106) 34.6 GM/DL 32.0-36.0 RED CELL DISTRIBUTION WIDTH (BEAKER) (test qcaz=822) 13.0 % 10.3-14.2 PLATELET COUNT (BEAKER) (test jvze=956) 270 K/CU MM 150-430 MEAN PLATELET VOLUME (BEAKER) (test ttsa=935) 7.5 fL 6.5-10.5 NUCLEATED RED BLOOD CELLS (BEAKER) (test njno=466) 0 /100 WBC 0-0 0.00PROTHROMBIN [id number] 05:52:00* Test Item Value Reference Range Comments PROTIME (BEAKER) (test gmeu=261) 13.3 seconds 11.7-14.7 INR (BEAKER) (test amvq=468) 1.0 <=5.9 RECOMMENDED COUMADIN/WARFARIN INR THERAPY RANGESSTANDARD DOSE: 2.0 - 3.0 Inclu lucien: PROPHYLAXIS for venous thrombosis, systemic embolization; TREATMENT for dougie ous thrombosis and/or pulmonary embolus.HIGH RISK: Target INR is 2.5-3.5 for pat ients with mechanical heart valves.HEPATIC FUNCTION [id number] 21:30:00* Test Item Value Reference Range Comments TOTAL PROTEIN (BEAKER) (test vkly=817) 7.2 gm/dL 6.0-8.5 ALBUMIN (BEAKER) (test ascr=1927) 3.7 g/dL 3.5-5.0 BILIRUBIN TOTAL (BEAKER) (test shnf=009) 0.5 mg/dL 0.1-1.2 BILIRUBIN DIRECT (BEAKER) (test mwbk=499) mg/dL 0.0-0.4 Test not performed ALKALINE PHOSPHATASE (BEAKER) (test ysqa=785) 71 U/L 30-115 AST (SGOT) (BEAKER) (test buzq=054) 26 U/L 5-40 ALT (SGPT) (BEAKER) (test lwem=104) 15 U/L 5-50 [id number] 21:29:00* Test Item Value Reference Range Comments AMYLASE (BEAKER) (test nccy=003) 94 U/L 30-110 BASIC METABOLIC [id number] 21:28:00* Test Item Value Reference Range Comments SODIUM (BEAKER) (test lvut=883) 143 meq/L 135-148 POTASSIUM (BEAKER) (test lilt=555) 3.5 meq/L 3.6-5.5 CHLORIDE (BEAKER) (test csvd=007) 104 meq/L 98-106 CO2 (BEAKER) (test gbwv=070) 28 meq/L 24-32 BLOOD UREA NITROGEN (BEAKER) (test mfos=661) 17 mg/dL 10-26 CREATININE (BEAKER) (test lapm=893) 0.60 mg/dL 0.50-1.20 GLUCOSE RANDOM (BEAKER) (test sihd=961) 144 mg/dL 70-110 CALCIUM (BEAKER) (test xqhg=760) 9.2 mg/dL 8.5-10.5 EGFR (BEAKER) (test wqiw=8120) 101 mL/min/1.73 sq m ESTIMATED GFR IS NOT ACCURATE CREATININE CLEARANCE IN PREDICTING GLOMERULAR FILTRATION RATE. ESTIMATED GFR IS NOT APPLICABLE FOR DIALYSIS PATIENTS. CBC (HEMOGRAM ONLY)2016-06-19 21:27:00* Test Item Value Reference Range Comments WHITE BLOOD CELL COUNT (BEAKER) (test hhng=521) 7.3 K/ L 4.0-10.0 RED BLOOD CELL COUNT (BEAKER) (test lnqd=373) 4.23 M/ L 4.00-5.00 HEMOGLOBIN (BEAKER) (test qebe=356) 13.1 GM/DL 12.0-15.0 HEMATOCRIT (BEAKER) (test ftww=925) 37.0 % 36.0-45.0 MEAN CORPUSCULAR VOLUME (BEAKER) (test emhh=481) 87.5 fL 82.0-99.0 MEAN CORPUSCULAR HEMOGLOBIN (BEAKER) (test xtjo=085) 31.0 pg 27.0-33.0 MEAN CORPUSCULAR HEMOGLOBIN CONC (BEAKER) (test pizt=395) 35.4 GM/DL 32.0-36.0 RED CELL DISTRIBUTION WIDTH (BEAKER) (test xhgj=595) % 10.3-14.2 . PLATELET COUNT (BEAKER) (test kosq=021) 321 K/CU MM 150-430
[2019-07-11] MEDS ORDERED: ASPIRIN 81 MG CHEW TAB PO ONE (21:30)
[2019-07-11 21:40] LABS: BASOPHILS # (AUTO) 0.1 (0.0-0.1); BASOPHILS % 0.2 % (0.0-1.0); EOSINOPHILS % 0.1 % (0.0-6.0); HEMATOCRIT 35.9 % (34.2-44.1); HEMOGLOBIN 12.3 g/dL (12.0-16.0); LYMPHOCYTES # (AUTO) 5.4 (1.0-3.2); LYMPHOCYTES % 20.6 % (18.0-39.1); MEAN CORPUSCULAR HEMOGLOBIN 32.2 pg (28-32); MEAN CORPUSCULAR HGB CONC 34.3 g/dL (31-35); MONOCYTES # (AUTO) 14.9 (0.2-0.8); MONOCYTES % 57.2 % (4.4-11.3); NEUTROPHILS # (AUTO) 5.7 (2.1-6.9); NEUTROPHILS % 21.9 % (38.7-80.0); PLATELET COUNT 184 x10e3/uL (140-360); RED BLOOD COUNT 3.82 x10e6/uL (3.6-5.1); RED CELL DISTRIBUTION WIDTH 16.4 % (11.7-14.4)
[2019-07-11] MEDS ORDERED: ONDANSETRON HCL INJ 2MG/ML 2ML 2 MG/ML VIAL IV STA (21:41)
[2019-07-11] MEDS ORDERED: MORPHINE SULFATE INJ 4 MG/ML INJ 1ML IV STA (21:41)
[2019-07-11 21:49] LABS: INR 1.15; PROTHROMBIN TIME 15.5 seconds (11.9-14.5)
[2019-07-11 21:58] LABS: ALANINE AMINOTRANSFERASE 45 IU/L (0-55); ALBUMIN 4.2 g/dL (3.5-5.0); ALBUMIN/GLOBULIN RATIO 1.2 (0.8-2.0); ALKALINE PHOSPHATASE 130 IU/L (40-150); BLOOD UREA NITROGEN 16 mg/dL (7-26); BUN/CREATININE RATIO 15 (6-25); CALCIUM 9.9 mg/dL (8.4-10.2); CARBON DIOXIDE 24 mmol/L (22-29); CHLORIDE 103 mmol/L (98-107); CREATINE KINASE 20 IU/L (29-168); CREATININE, SERUM 1.05 mg/dL (0.57-1.11); EST GLOMERULAR FILTRATION RATE 52 ML/MIN (60-); GLUCOSE 324 mg/dL (74-118); SODIUM 137 mmol/L (136-145)
[2019-07-11 22:04] LABS: CLARITY,URINE CLEAR (CLEAR); COLOR,URINE YELLOW (YELLOW); LEUKOCYTE ESTERASE ,URINE NEGATIVE (NEGATIVE); NITRITE,URINE NEGATIVE (NEGATIVE); PROTEIN,URINE DIPSTICK 2+ (NEGATIVE)
[2019-07-11 22:05] LABS: BACTERIA,URINE RARE /HPF; BILIRUBIN,URINE SMALL (NEGATIVE); EPITHELIAL CELLS,URINE FEW /LPF; KETONES,URINE TRACE (NEGATIVE); URINE UROBILINOGEN 0.2 mg/dL (0.2 - 1)
--- NOTE | 2019-07-11 22:30 | NUR ---
PT RESTING, VITAL SIGNS STABLE, PT STATED PAIN HAS RESOLVED, PT TO BE ADMITTED PT AWARE OF POC
--- NOTE | 2019-07-11 23:03 | Diagnostic Imaging Report ---
EXAMINATION: CHEST SINGLE (PORTABLE) INDICATION: Substernal chest pain COMPARISON: None FINDINGS: TUBES and LINES: None. LUNGS: Normal lung volumes. Subtle right infrahilar haziness. PLEURA: No pleural effusion or pneumothorax. HEART AND MEDIASTINUM: The cardiomediastinal silhouette is unremarkable. There are atherosclerotic calcifications within the aorta. BONES AND SOFT TISSUES: No acute osseous lesion. Soft tissues are unremarkable. UPPER ABDOMEN: No free air under the diaphragm. IMPRESSION: Subtle right infrahilar haziness could be due to atelectasis or pneumonia. Upright PA and lateral chest radiographs can further evaluate. Signed by: Abdulkadir Gomez DO on 07/11/2019 10:59 PM
--- NOTE | 2019-07-11 23:21 | NUR ---
REPORT TO RAINA BAUTISTA ALL QUESTIONS ANSWERED
[2019-07-12] VITALS (10 sets, daily range): BP systolic 139–156; BP diastolic 67–73
--- NOTE | 2019-07-12 01:28 | Diagnostic Imaging Report ---
EXAM: CT Chest WITHOUT contrast INDICATION: Lung haziness on chest x-ray COMPARISON: None TECHNIQUE: Chest was scanned utilizing a multidetector helical scanner from the lung apex through the level of the adrenal glands without administration of IV contrast. Absence of intravenous contrast decreases sensitivity for detection of lymphadenopathy and vascular pathology. Coronal and sagittal reformations were obtained. Routine protocol was performed. IV CONTRAST: None COMPLICATIONS: None RADIATION DOSE: Total DLP: 461 mGy*cm Estimated effective dose: (DLP x 0.014 x size factor) mSv CTDIvol has been reviewed. It is below the limits set by the Radiation Protocol Committee (RPC). Dose modulation, iterative reconstruction, and/or weight based adjustment of the mA/kV was utilized to reduce the radiation dose to as low as reasonably achievable. FINDINGS: LINES/ TUBES: None. LUNGS AND AIRWAYS: Mild bibasilar atelectasis and subtle subsegmental atelectasis in the lower lungs. Airways are normal. PLEURA: The pleural spaces are clear. HEART AND MEDIASTINUM: The thyroid gland is normal. No mediastinal, hilar or axillary lymphadenopathy. The heart is normal in size. There is no pericardial effusion. There are mild atherosclerotic calcifications in the aorta and left anterior descending coronary artery. UPPER ABDOMEN: Unremarkable. BONES: The visualized bony thorax is within normal limits. SOFT TISSUES: Unremarkable. IMPRESSION: Mild bibasilar atelectasis and subtle subsegmental atelectasis in the lower lungs. Left anterior descending coronary calcific atherosclerosis. Signed by: Abdulkadir Gomez DO on 07/12/2019 1:25 AM
[2019-07-12] MEDS ORDERED: ASPIRIN 81 MG CHEW TAB PO ONE (01:45)
[2019-07-12] MEDS ORDERED: MORPHINE SULFATE 2 MG/ML SYR 1ML IV PRN (01:45)
[2019-07-12] MEDS ORDERED: DEXTROSE 50% SYRINGE 50 ML IV PRN (01:45)
[2019-07-12] MEDS ORDERED: SODIUM CHLORIDE FLUSH 10 ML SYR INJ PRN (01:45)
[2019-07-12] MEDS: MORPHINE SULFATE INJ 4 MG/ML INJ 1ML IV PRN ×3 (02:37→17:04)
--- NOTE | 2019-07-12 03:00 | NUR ---
report received from [employer] SALESPERSON, PATIENT PENDING ARRIVAL TO THE FLOOR, CARDIAC LAB WILL BE DRAWN AND TAKEN TO THE LAB PRIOR TO BRINGING TO THE FLOOR
[2019-07-12] MEDS: ONDANSETRON HCL INJ 2MG/ML 2ML 2 MG/ML VIAL IV PRN ×3 (03:04→17:05)
--- NOTE | 2019-07-12 03:13 | NUR ---
PATIENT ARRIVED TO THE FLOOR [place]IA [facility], AWAKE ALERT, ABLE TO POSITION SELF ON BED FROM [facility], ORIENTED TO STAFF AND ENVIRONMENT, BED IN LOWEST POSITION, CALL LIGHT WITHIN REACH
[2019-07-12] MEDS ORDERED: BACLOFEN10 MG PO (04:35)
[2019-07-12] MEDS ORDERED: METHYLPREDNISOLO4 M1 (04:35)
[2019-07-12] MEDS ORDERED: TYLENOL WITH C1 EACH PO (04:35)
[2019-07-12 06:31] LABS: CREATINE KINASE 16 IU/L (29-168)
[2019-07-12 06:33] LABS: BASOPHILS # (AUTO) 0.1 (0.0-0.1); BASOPHILS % 0.2 % (0.0-1.0); EOSINOPHILS % 0.1 % (0.0-6.0); HEMATOCRIT 32.3 % (34.2-44.1); HEMOGLOBIN 10.9 g/dL (12.0-16.0); LYMPHOCYTES # (AUTO) 6.8 (1.0-3.2); LYMPHOCYTES % 14.7 % (18.0-39.1); MEAN CORPUSCULAR HEMOGLOBIN 32.1 pg (28-32); MEAN CORPUSCULAR HGB CONC 33.7 g/dL (31-35); MONOCYTES # (AUTO) 28.2 (0.2-0.8); MONOCYTES % 61.4 % (4.4-11.3); NEUTROPHILS # (AUTO) 10.8 (2.1-6.9); NEUTROPHILS % 23.6 % (38.7-80.0); PLATELET COUNT 164 x10e3/uL (140-360); RED CELL DISTRIBUTION WIDTH 16.7 % (11.7-14.4)
[2019-07-12 07:15] LABS: BAND NEUTROPHILS % (MANUAL) 1 %; BLAST CELLS % MANUAL 9; EOSINOPHILS % (MANUAL) 1 % (0-7); LYMPHOCYTES % (MANUAL) 18 % (19-48); METAMYELOCYTES % (MANUAL) 1 % (0-0); MONOCYTES % (MANUAL) 60 % (3.4-9.0); MYELOCYTES % (MANUAL) 1 % (0-0); NEUTROPHILS % (MANUAL) 9 % (40-74)
[2019-07-12 07:19] LABS: PLATELET ESTIMATE ADEQUATE
[2019-07-12 07:20] LABS: PLATELET MORPHOLOGY COMMENT FEW LARGE; RBC MORPHOLOGY COMMENT NORMAL
--- NOTE | 2019-07-12 07:20 | NUR ---
BSSR GIVEN TO RN JANEEN, PATIENTSEEN SLEEPING, NO DISTRESS NOTED, SKIN WARM DRY, CALL LIGHT WITHIN REACH, UPDATE WITH PATIENT PLAN OF CARE, AND LAST DOSE OF PAIN MEDICATION, BED IN LOWEST POSITION , REMAIN ON OBSERVATION STATUS FOR CHEST PAIN, AND NAUSEA, TELEMETRY IN PLACE
[2019-07-12 07:21] LABS: SMUDGE CELLS FEW
[2019-07-12] MEDS ORDERED: INSULIN REGULAR, HUMAN 100 UNIT/1 ML 3ML VIAL SQ SCH (07:30)
[2019-07-12] MEDS: INSULIN LISPRO 100 UNIT/1 ML 3ML VIAL SQ SCH ×3 (11:30→20:41)
[2019-07-12] MEDS ORDERED: ACETAMINOPHEN 325 MG TAB PO PRN (11:30)
[2019-07-12] MEDS: METFORMIN HCL 500 MG TAB PO SCH (16:50)
[2019-07-12] MEDS: SODIUM CHLORIDE 0.9% 1000ML 1,000 ML IV SCH (16:50)
[2019-07-12] MEDS ORDERED: ENOXAPARIN INJ 80 MG/0.8 ML SYR SC ONE (18:00)
--- NOTE | 2019-07-12 18:59 | NUR ---
pt vomiting at bedside, about 300 cc. pt ambulated to BR, c/o dizziness. will continue to monitor.
[2019-07-12] MEDS ORDERED: PREDNISONE 20 MG TAB PO ONE (19:00)
--- NOTE | 2019-07-12 19:39 | NUR ---
Received bedside report from day nurse. Patient awake and resting in bed, no s/s of distress at this time. Bed locked and in low position, call light placed within reach. All safety measures in place. Per day nurse, patient vomited immediately after receiving first dose of prednisone, contrast prophylaxis for CT chest in the morning. Will notify MD and continue to monitor.
--- NOTE | 2019-07-12 20:03 | NUR ---
Spoke to Dr. Little and notified him of patient's vomiting episode. Received orders to give 50 solumedrol IV x 1 now, and to change remaining contrast prophylaxis orders (0100 AM dose of 50 mg prednisone PO and 0700 AM doses of 50 mg prednisone PO and 50 mg benadryl PO) to be administered IV.
[2019-07-12] MEDS ORDERED: METHYLPREDNISOLONE SOD SUCC 40 MG/ML VIAL 1ML IV ONE (20:15)
--- NOTE | 2019-07-12 22:00 | NUR ---
Spoke with patient's daughter and family on phone. Family is wanting patient to go to [facility], not [facility] due to concerns for cancer. Will notify Dr. Sim.
--- NOTE | 2019-07-12 22:09 | NUR ---
Spoke with Dr. Sim regarding family request to transfer to [facility]. Per Dr. Sim, patient needs to get workup at [facility] for possible cancer. Difficult to transfer to [facility] at this time unless patient already has established care. Possibility for patient to transfer to [facility] once workup has been done. Per Dr. Sim and warehouse administrative assistant, patient has been accepted at [facility] and will most likely be transferring tomorrow. Called and updated daughter and family who verbalized understanding of situation and are willing to proceed with transfer to [facility] at this time.
[2019-07-12 23:41] LABS: CLARITY,URINE CLEAR (CLEAR); COLOR,URINE YELLOW (YELLOW)
[2019-07-12 23:42] LABS: BILIRUBIN,URINE NEGATIVE (NEGATIVE); KETONES,URINE TRACE (NEGATIVE); LEUKOCYTE ESTERASE ,URINE NEGATIVE (NEGATIVE); NITRITE,URINE NEGATIVE (NEGATIVE); PROTEIN,URINE DIPSTICK 1+ (NEGATIVE); URINE UROBILINOGEN 0.2 mg/dL (0.2 - 1)
[2019-07-12 23:43] LABS: BACTERIA,URINE FEW /HPF; EPITHELIAL CELLS,URINE FEW /LPF; WBC,URINE (MAN) 0-5 /HPF (0-5)
[2019-07-13] VITALS: BP 128/60
[2019-07-13] MEDS ORDERED: PREDNISONE 20 MG TAB PO ONE ×2 (01:00→07:00)
[2019-07-13] MEDS ORDERED: METHYLPREDNISOLONE SOD SUCC 40 MG/ML VIAL 1ML IV ONE ×2 (01:00→07:00)
[2019-07-13 04:00] VITALS: BP 133/65
[2019-07-13] MEDS: SODIUM CHLORIDE 0.9% 1000ML 1,000 ML IV SCH ×2 (04:01→07:30)
[2019-07-13 06:02] LABS: BASOPHILS # (AUTO) 0.1 (0.0-0.1); BASOPHILS % 0.2 % (0.0-1.0); EOSINOPHILS # (AUTO) 0.1 (0.0-0.4); EOSINOPHILS % 0.2 % (0.0-6.0); HEMATOCRIT 33.2 % (34.2-44.1); HEMOGLOBIN 11.5 g/dL (12.0-16.0); LYMPHOCYTES # (AUTO) 7.8 (1.0-3.2); LYMPHOCYTES % 20.3 % (18.0-39.1); MEAN CORPUSCULAR HEMOGLOBIN 32.4 pg (28-32); MEAN CORPUSCULAR HGB CONC 34.6 g/dL (31-35); MEAN CORPUSCULAR VOLUME 93.5 fL (81-99); MONOCYTES % 67.5 % (4.4-11.3); NEUTROPHILS # (AUTO) 4.6 (2.1-6.9); NEUTROPHILS % 11.8 % (38.7-80.0); PLATELET COUNT 142 x10e3/uL (140-360); RED BLOOD COUNT 3.55 x10e6/uL (3.6-5.1); RED CELL DISTRIBUTION WIDTH 17.1 % (11.7-14.4)
[2019-07-13 06:25] LABS: ANION GAP 13.6 mmol/L (8-16); BLOOD UREA NITROGEN 20 mg/dL (7-26); BUN/CREATININE RATIO 24 (6-25); CALCIUM 8.9 mg/dL (8.4-10.2); CARBON DIOXIDE 24 mmol/L (22-29); CHLORIDE 103 mmol/L (98-107); CREATININE, SERUM 0.83 mg/dL (0.57-1.11); EST GLOMERULAR FILTRATION RATE > 60 ML/MIN (60-); GLUCOSE 297 mg/dL (74-118); POTASSIUM 3.6 mmol/L (3.5-5.1); SODIUM 137 mmol/L (136-145)
[2019-07-13 06:40] LABS: CHOL/HDL RATIO 6.3 (3.0-3.6)
[2019-07-13 06:46] LABS: THYROID STIMULATING HORMONE 0.255 uIU/mL (0.350-4.940)
[2019-07-13] MEDS ORDERED: DIPHENHYDRAMINE HCL 25 MG CAP PO ONE (07:00)
[2019-07-13] MEDS ORDERED: DIPHENHYDRAMINE HCL INJ 50 MG/ML VIAL IV ONE (07:00)
--- NOTE | 2019-07-13 07:06 | NUR ---
Bedside report given to day nurse. Patient resting in bed, no s/s of distress at this time. Bed locked and in low position, call light placed within reach. All safety measures in place.
--- NOTE | 2019-07-13 07:06 | NUR ---
bedside shift report received from PM nurse. pt in stable condition. will continue to monitor.
[2019-07-13] MEDS: INSULIN LISPRO 100 UNIT/1 ML 3ML VIAL SQ SCH ×2 (07:30→12:04)
[2019-07-13 07:35] VITALS: BP 128/60
[2019-07-13] MEDS: METFORMIN HCL 500 MG TAB PO SCH (08:00)
--- NOTE | 2019-07-13 08:01 | NUR ---
pt going to Radiology for CT scan; informed [employer] family and pt is okay with being transferred to [facility]. transfer being initiated.
[2019-07-13 08:54] VITALS: BP 134/71
[2019-07-13 10:22] LABS: LYMPHOCYTES % (MANUAL) 18 % (19-48); MONOCYTES % (MANUAL) 63 % (3.4-9.0); NEUTROPHILS % (MANUAL) 19 % (40-74)
--- NOTE | 2019-07-13 10:45 | Diagnostic Imaging Report ---
EXAM: CT Chest WITH contrast 07/13/2019 8:00 AM INDICATION: Chest pain. Pulmonary embolism. COMPARISON: 07/11/2019. TECHNIQUE: Chest was scanned utilizing a multidetector helical scanner from the lung apex through the level of the adrenal glands without administration of IV contrast. Coronal and sagittal reformations were obtained. Pulmonary embolism protocol was performed. IV CONTRAST: 100 mL of Isovue-370 RADIATION DOSE: Total DLP: 464.91 mGy*cm Estimated effective dose: (DLP x 0.014 x size factor) mSv COMPLICATIONS: None FINDINGS: LINES/ TUBES: None. LUNGS AND AIRWAYS: No filling defects within the pulmonary arterial system to the resolved segmental level. Mild bibasilar atelectasis and subtle subsegmental atelectasis in the lower lungs. Airways are normal. PLEURA: The pleural spaces are clear. HEART AND MEDIASTINUM: The thyroid gland is normal. No mediastinal, hilar or axillary lymphadenopathy. The heart is normal in size.. There is no pericardial effusion. There are mild atherosclerotic calcifications in the aorta and coronary arteries. UPPER ABDOMEN: Limited non-contrast views of the upper abdomen show hepatic steatosis. Status post cholecystectomy. The adrenal glands are normal. BONES: The visualized bony thorax is within normal limits. SOFT TISSUES: Unremarkable. IMPRESSION: No acute pulmonary embolism. Signed by: Dr. [facility] M.D. on 07/13/2019 10:42 AM
[2019-07-13 12:25] VITALS: BP 144/73
--- NOTE | 2019-07-13 14:27 | NUR ---
report given to LILY Tomas at [facility] who will be receiving pt in transfer. Addendum: 07/13/19 at 1533 by Maegan Rodriguez RN informed LILY Tomas on importance of holding Metformin for 48 hours s/p CT chest with IV contrast.
[2019-07-13] MEDS ORDERED: IOPAMIDOL 370 MG/ML 200 ML INFUS..BTL INJ ONE (18:30)
[2019-07-13] MEDS ORDERED: SODIUM CHLORIDE 0.9% INJ 50 ML BAG ONE (18:30)
[2019-07-13] MEDS ORDERED: ENOXAPARIN SOD INJ 40 MG/0.4 ML SYR SC SCH (21:00)
[2019-07-22 18:02] LABS: PATHOLOGY REVIEW SEE COMMENTS
== END 2019-07-13 15:44 ==
LOC: ER 21:11 → INTOOBSV 07-12 01:46 → ERHOLD 07-12 01:46 → MED/SURG 07-12 03:05
PROVIDERS: ADMIT Internal Medicine; ATTEND Internal Medicine
DX: D72.829 Elevated white blood cell count, unspecified (principal); I10 Essential (primary) hypertension; K21.9 Gastro-esophageal reflux disease without esophagitis; R51 Headache; Z79.4 Long term (current) use of insulin; E11.65 Type 2 diabetes mellitus with hyperglycemia
CPT/HCPCS: 36415 ×3; 71045; 71250; 71260; 80048; 80053; 80061; 81001 ×2; 82550 ×2; 82553 ×2; 82948 ×2; 83880; 84443; 84484 ×2; 85025 ×3; 85610; 85730; 87086; 93005; 93306; 96372; 99284; G0378 ×2; J1200; J1650; J2270 ×2; J2405 ×2; J2920 ×2; J7030 ×2; J7512; Q9967